=== PATIENT | female | born 1970 | race Caucasian/White ===

== ENCOUNTER 2016-11-21 13:01 | Emergency (ER) | payer OTHER ==
--- NOTE | ~2016-11-21 | CR63 ---
[facility] A Service of [facility] RADIOLOGY TEXT RESULTS PATIENT: Sinai Jimenez LOCATION: SED : 68 UNIT #: [id number] AGE: [address]: Hilario Ross MD SEX: F ORDER DR: [id number] [place] [id number] E MR#: [id number] Acc #: [id number] NAME: SINAI JIMENEZ : 1970 SEX: F STUDY DATE/TIME: 11/21/2016 12:45 UNIT: SED ROOM: STUDY DESCRIPTION: CR Chest 2 View Attending Physician: Hilario Ross M.D. Ordering Physician: Hilario Ross M.D. Primary Care Physician: No Primary Care Physician MEDICAL IMAGING REPORT This report is preliminary unless electronic signature is present. EXAM 2 views of the chest. COMPARISON None INDICATION 45-year-old female with dyspnea, cough and chest congestion for 2 days. History of COPD and 21-year smoking history. FINDINGS The cardiomediastinal silhouette is within normal limits. There is poor inspiratory effort. There is no evidence of pneumothorax, pleural effusion, or consolidative pneumonia. There are calcified pulmonary granulomas. There is crowding of central bronchovascular structures likely due to low lung volumes. Multilevel [id number]-lp-txyfkpak anterior osteophyte formation of the thoracic spine. IMPRESSION No acute radiographic abnormality. Poor inspiratory effort with bronchovascular crowding. Some of the opacities in left lung base appear slightly more confluent, still favoring atelectasis, but correlation to exclude signs of pneumonia are recommended. No pleural effusion. Dictated by... Raymond Downey M.D. THIS IS AN ELECTRONICALLY VERIFIED REPORT Raymond Downey M.D. at 11/21/2016 3:46 PM ALEXIA/amadou [facility] A Service of [facility] RADIOLOGY TEXT RESULTS PATIENT: Sinai Jimenez LOCATION: SED : 68 UNIT #: [id number] AGE: [address]: Hilario Ross MD SEX: F ORDER DR: TD: 11/21/2016 14:52 JOB #: [id number] MEDICAL IMAGING REPORT Page 1 of 1
== END 2016-11-21 13:30 | disposition home or self-care (01) ==
LOC: SED 13:01
DX: J44.1 Chronic obstructive pulmonary disease with (acute) exacerbation (principal); F17.200 Nicotine dependence, unspecified, uncomplicated; Z88.8 Allergy status to other drugs, medicaments and biological substances
CPT/HCPCS: 71020; 94640; 99284